=== PATIENT | male | born 1990 | race Caucasian/White ===

== ENCOUNTER 2022-12-07 02:26 | Emergency (ER) | payer BC ==
[~2022-12-07] VITALS: Ht 175.3 cm; Wt 61.4 kg
[2022-12-07] MEDS ORDERED: TETRACAINE 0.5% OPHTH SOLN 4ML OS ONE (02:45)
[2022-12-07] MEDS ORDERED: FLUORESCEIN OPHTH 1MG STRIP OS ONE (02:45)
[2022-12-07 05:12] VITALS: BP 129/63
== END 2022-12-07 05:13 | disposition home or self-care (01) ==
LOC: M ED 02:26
DX: H11.32 Conjunctival hemorrhage, left eye (principal)

== ENCOUNTER → 2024-04-06 | Outpatient (CLI) | payer BC, MEDICAID | LOC: M OUTALCOH 10:54 | PROVIDERS: ATTEND Psychiatry & Neurology Psychiatry | DX: F10.10 Alcohol abuse, uncomplicated (principal); Z72.0 Tobacco use ==

== ENCOUNTER 2024-05-08 12:43 | Outpatient (RCR) | payer BC, MEDICAID | END 2024-05-11 | LOC: M OUTALCOH 12:43 | PROVIDERS: ATTEND Psychiatry & Neurology Psychiatry | DX: F10.10 Alcohol abuse, uncomplicated (principal); Z72.0 Tobacco use ==

== ENCOUNTER 2024-06-10 12:47 | Outpatient (RCR) | payer BC, MEDICAID | END 2024-06-11 | LOC: M OUTALCOH 12:47 | PROVIDERS: ATTEND Psychiatry & Neurology Psychiatry | DX: F10.10 Alcohol abuse, uncomplicated (principal); Z72.0 Tobacco use ==

== ENCOUNTER 2024-07-07 16:00 | Outpatient (RCR) | payer BC, MEDICAID | END 2024-07-11 | LOC: M OUTALCOH 16:00 | PROVIDERS: ATTEND Psychiatry & Neurology Psychiatry | DX: F10.10 Alcohol abuse, uncomplicated (principal); Z72.0 Tobacco use ==

== ENCOUNTER 2024-07-22 12:43 | Outpatient (RCR) | payer BC, MEDICAID | END 2024-08-11 | LOC: M OUTALCOH 12:43 | PROVIDERS: ATTEND Psychiatry & Neurology Psychiatry | DX: F10.10 Alcohol abuse, uncomplicated (principal); Z72.0 Tobacco use ==